=== PATIENT | female | born 1995 | race Caucasian/White ===

== ENCOUNTER 2022-01-12 11:19 | Inpatient (IN) | payer BC ==
[2022-01-18] MEDS ORDERED: Ondansetron 4 MG/2 ML SDV IVPUSH PRN (19:12)
[2022-01-18] MEDS ORDERED: Lidocaine 1% 50 ML MDV INJECT ONE (19:12)
[2022-01-18] MEDS ORDERED: Calcium Carbonate 500 MG Tab.Chew PO PRN (19:12)
[2022-01-18] MEDS ORDERED: Acetaminophen 325 MG Tab PO PRN (19:12)
[2022-01-18] MEDS ORDERED: Sodium Chloride 0.9% 10 ML Syringe FLUSH PRN (19:12)
[2022-01-18] MEDS ORDERED: Nalbuphine HCl 10 MG/ 1ML Amp IVPUSH PRN (19:12)
[2022-01-18] MEDS ORDERED: Oxytocin/Lactated Ringers 10 UNIT/1,000 ML BAG IV SCH ×2 (19:15)
[2022-01-18] MEDS: Lactated Ringers 1,000 ML IV SCH (20:04)
[2022-01-19] MEDS ORDERED: fentaNYL 100 MCG/2 ML SDV EPIDUR PRN (00:27)
[2022-01-19] MEDS ORDERED: Bupivacaine/fentaNYL/NS 100 ML Bag EPIDUR PRN (00:27)
[2022-01-19] MEDS ORDERED: diphenhydrAMINE 50 MG/ML SDV IVPUSH PRN (00:27)
[2022-01-19] MEDS ORDERED: ePHEDrine 50 MG/ML SDV IVPUSH PRN (00:27)
[2022-01-19] MEDS: Lactated Ringers 1,000 ML IV SCH ×4 (00:29→09:39)
[2022-01-19] MEDS ORDERED: Ampicillin 2 GM in Sodium Chloride 0.9% 100 ML IV ONE (08:00)
[2022-01-19] MEDS ORDERED: Ampicillin 2 GM in Sodium Chloride 0.9% 100 ML IV SCH (08:00)
[2022-01-19] MEDS ORDERED: SODIUM CHLORIDE 0.9% IV ONE (08:30)
[2022-01-19] MEDS ORDERED: GENTAMICIN IV ONE (08:30)
[2022-01-19] MEDS ORDERED: Carboprost Tromethamine 250 MCG/1 ML Amp ONE (08:47)
[2022-01-19] MEDS ORDERED: Carboprost Tromethamine 250 MCG/1 ML Amp IM ONE (09:09)
[2022-01-19] MEDS ORDERED: Methylergonovine 0.2 MG/1 ML Amp IM STA (09:09)
[2022-01-19] MEDS ORDERED: Misoprostol 200 MCG Tab PO STA (09:09)
[2022-01-19] MEDS ORDERED: Witch Hazel Medicated Pads 40/Jar TOP PRN (09:36)
[2022-01-19] MEDS ORDERED: Acetaminophen 325 MG Tab PO PRN (09:36)
[2022-01-19] MEDS ORDERED: Benzocaine/Menthol 20%-0.5% Spray 78 GM Cannister TOP PRN (09:36)
[2022-01-19] MEDS ORDERED: Methylergonovine 0.2 MG/1 ML Amp IM SCH (11:00)
[2022-01-19] MEDS ORDERED: Bupivacaine 0.25% 10 ML SDV ONE (12:00)
[2022-01-19] MEDS ORDERED: Acetaminophen 325 MG Tab PO ONE ×2 (17:38→18:13)
[2022-01-19] MEDS: ceFAZolin 1 GM in Sodium Chloride 0.9% 50 ML IV SCH ×2 (18:16→23:58)
[2022-01-20] MEDS: ceFAZolin 1 GM in Sodium Chloride 0.9% 50 ML IV SCH ×2 (05:58→11:54)
[2022-01-20] MEDS: Docusate Sodium 100 MG Cap PO PRN ×2 (09:33→21:09)
[2022-01-20] MEDS: Ibuprofen 600 MG Tab PO PRN (21:09)
[2022-01-21] MEDS: Ibuprofen 600 MG Tab PO PRN (03:33)
== END 2022-01-21 10:50 | disposition home or self-care (01) | DRG 560 ==
LOC: JD.OB 01-18 09:53 → OBSVTOIN 01-19 09:53 → JD.OB 01-19 09:54
PROVIDERS: ADMIT Obstetrics & Gynecology; ATTEND Obstetrics & Gynecology
PROC: 10D07Z6 Extraction of Products of Conception, Vacuum, Via Natural or Artificial Opening (ICD-10-PCS; principal; 2022-01-19)
PROC: 10907ZC Drainage of Amniotic Fluid, Therapeutic from Products of Conception, Via Natural or Artificial Opening (ICD-10-PCS; 2022-01-19)
PROC: 3E033VJ Introduction of Other Hormone into Peripheral Vein, Percutaneous Approach (ICD-10-PCS; 2022-01-19)
PROC: 3E0R3BZ Introduction of Anesthetic Agent into Spinal Canal, Percutaneous Approach (ICD-10-PCS; 2022-01-19)
PROC: 00HU33Z Insertion of Infusion Device into Spinal Canal, Percutaneous Approach (ICD-10-PCS; 2022-01-19)
DX: O48.0 Post-term pregnancy (principal); O41.1230 Chorioamnionitis, third trimester, not applicable or unspecified; Z3A.40 40 weeks gestation of pregnancy; Z37.0 Single live birth; O72.1 Other immediate postpartum hemorrhage; O70.0 First degree perineal laceration during delivery; O99.02 Anemia complicating childbirth; D64.9 Anemia, unspecified
CPT/HCPCS: 01967; 36415; 51701; 51702; 59025; 59409; 85025; 85027; 85610; 85730; 86592; 86850; 86900; 86901; 86922; A9270-GY; J0290; J0690; J1580; J2210; J2590; J3010; J3490; J7120

== ENCOUNTER 2023-08-16 19:23 | Inpatient (IN) | payer BC ==
[2023-08-16] MEDS ORDERED: Ampicillin 2 GM in Sodium Chloride 0.9% 100 ML IV ONE (20:02)
[2023-08-16] MEDS ORDERED: Lidocaine 1% 50 ML MDV INJECT PRN (20:02)
[2023-08-16] MEDS ORDERED: Ondansetron 4 MG/2 ML SDV IVPUSH PRN (20:02)
[2023-08-16] MEDS ORDERED: Sodium Chloride 0.9% 10 ML Syringe FLUSH PRN (20:02)
[2023-08-16] MEDS ORDERED: Nalbuphine HCl 10 MG/ 1ML Amp IVPUSH PRN (20:02)
[2023-08-16] MEDS ORDERED: Oxytocin/Lactated Ringers 30 UNIT/500 ML BAG IV SCH (20:15)
[2023-08-16] MEDS ORDERED: Lactated Ringers 1,000 ML IV SCH (20:15)
[2023-08-16 20:21] LABS: BASOPHILS PERCENT AUTO 0.1 % (0.0-1.0); EOSINOPHILS ABSOLUTE AUTO 0.1 K/mm3 (0.0-0.4); EOSINOPHILS PERCENT AUTO 0.5 % (0.0-6.0); HEMATOCRIT 34.1 % (37.0-47.0); HEMOGLOBIN 11.5 gm/dl (12.0-16.0); IMMATURE GRAN ABSOLUTE AUTO 0.05 K/mm3 (0.00-0.05); IMMATURE GRAN PERCENT AUTO 0.4 % (0.0-0.4); LYMPHOCYTES ABSOLUTE AUTO 1.9 K/mm3 (1.0-4.8); LYMPHOCYTES PERCENT AUTO 14.9 % (24.0-44.0); MEAN CORPUSCULAR HEMOGLOBIN 29.9 pg (28.0-32.0); MEAN CORPUSCULAR HGB CONC 33.7 g/dl (32.0-36.0); MEAN CORPUSCULAR VOLUME 88.8 fl (83.0-99.0); MEAN PLATELET VOLUME 8.9 fl (9.4-12.3); MONOCYTES ABSOLUTE AUTO 1.2 K/mm3 (0.0-0.8); MONOCYTES PERCENT AUTO 9.5 % (0.0-8.0); NEUTROPHILS ABSOLUTE AUTO 9.7 K/mm3 (1.8-7.7); NEUTROPHILS PERCENT AUTO 74.6 % (41.0-71.0); PLATELET COUNT,PLT 247 K/mm3 (150-400); RED BLOOD CELL COUNT 3.84 M/mm3 (4.10-5.30); WHITE BLOOD CELL COUNT,WBC 12.99 K/mm3 (3.9-11.3)
[2023-08-16] MEDS ORDERED: Sodium Chloride 0.9% 10 ML Syringe FLUSH SCH (21:00)
[2023-08-16] MEDS ORDERED: Tranexamic Acid 1,000 MG/10 ML Vial ONE (21:00)
[2023-08-16] MEDS ORDERED: Bupivacaine/fentaNYL/NS 100 ML Bag EPIDUR PRN (21:42)
[2023-08-16] MEDS ORDERED: fentaNYL 100 MCG/2 ML SDV EPIDUR PRN (21:42)
[2023-08-16] MEDS ORDERED: ePHEDrine 50 MG/ML SDV IVPUSH PRN (21:42)
[2023-08-16] MEDS ORDERED: diphenhydrAMINE 50 MG/ML SDV IVPUSH PRN (21:42)
[2023-08-16] MEDS ORDERED: Methylergonovine 0.2 MG/1 ML Amp IM STA (23:44)
[2023-08-16] MEDS ORDERED: Benzocaine/Menthol 20%-0.5% Spray 78 GM Cannister TOP PRN (23:57)
[2023-08-16] MEDS ORDERED: Acetaminophen 325 MG Tab PO PRN (23:57)
[2023-08-16] MEDS ORDERED: Docusate Sodium 100 MG Cap PO PRN (23:57)
[2023-08-16] MEDS ORDERED: Ibuprofen 600 MG Tab PO PRN (23:57)
[2023-08-16] MEDS ORDERED: Witch Hazel Medicated Pads 40/Jar TOP PRN (23:57)
[2023-08-17] MEDS ORDERED: Ampicillin 1 GM in Sodium Chloride 0.9% 100 ML IV SCH ×2
== END 2023-08-18 15:07 | disposition home or self-care (01) | DRG 560 ==
LOC: JD.OBCHECK 19:23 → JD.OB 19:27 → OBSVTOIN 20:03 → JD.OB 20:03 → JD.OBCHECK 21:03 → JD.OB 23:21
PROVIDERS: ADMIT Obstetrics & Gynecology; ATTEND Obstetrics & Gynecology
PROC: 10E0XZZ Delivery of Products of Conception, External Approach (ICD-10-PCS; principal; 2023-08-16)
DX: O99.824 Streptococcus B carrier state complicating childbirth (principal); Z3A.40 40 weeks gestation of pregnancy; Z37.0 Single live birth
CPT/HCPCS: 36415; 59025; 59409; 85025; 86592; 86850; 86900; 86901; J0290; J2210; J3490; J7120; J7999

== ENCOUNTER 2025-02-23 18:43 | Inpatient (IN) | payer BC ==
[2025-02-23] MEDS ORDERED: Nalbuphine 10 MG/1 ML Vial IVPUSH PRN (19:09)
[2025-02-23] MEDS ORDERED: Sodium Chloride 0.9% 10 ML Syringe FLUSH PRN (19:09)
[2025-02-23] MEDS ORDERED: Ondansetron 4 MG/2 ML SDV IVPUSH PRN (19:09)
[2025-02-23] MEDS ORDERED: Lactated Ringers 1,000 ML IV SCH (19:15)
[2025-02-23] MEDS ORDERED: Oxytocin/0.9 % Sodium Chloride 30 UNIT/500 ML BAG IV SCH (19:15)
[2025-02-23 19:44] LABS: BASOPHILS ABSOLUTE AUTO 0.0 K/mm3 (0.0-0.2); BASOPHILS PERCENT AUTO 0.1 % (0.0-1.0); EOSINOPHILS ABSOLUTE AUTO 0.0 K/mm3 (0.0-0.4); EOSINOPHILS PERCENT AUTO 0.4 % (0.0-6.0); IMMATURE GRAN ABSOLUTE AUTO 0.02 K/mm3 (0.00-0.05); IMMATURE GRAN PERCENT AUTO 0.2 % (0.0-0.4); LYMPHOCYTES ABSOLUTE AUTO 1.5 K/mm3 (1.0-4.8); LYMPHOCYTES PERCENT AUTO 18.1 % (24.0-44.0); MEAN PLATELET VOLUME 9.4 fl (9.4-12.3); MONOCYTES ABSOLUTE AUTO 0.7 K/mm3 (0.0-0.8); MONOCYTES PERCENT AUTO 8.5 % (0.0-8.0); NEUTROPHILS ABSOLUTE AUTO 6.1 K/mm3 (1.8-7.7); NEUTROPHILS PERCENT AUTO 72.7 % (41.0-71.0); NRBC ABSOLUTE 0.00 (0.00-0.02); NRBC PERCENT 0.0 % (0.0-0.2); PLATELET COUNT,PLT 248 K/mm3 (150-400); RED BLOOD CELL COUNT 4.17 M/mm3 (4.10-5.30); WHITE BLOOD CELL COUNT,WBC 8.45 K/mm3 (3.9-11.3)
[2025-02-23] MEDS: Sodium Chloride 0.9% 10 ML Syringe FLUSH SCH (22:21)
[2025-02-23] MEDS: Oxytocin/0.9 % Sodium Chloride 30 UNIT/500 ML BAG IV SCH (23:25)
[2025-02-24] MEDS: Oxytocin/0.9 % Sodium Chloride 30 UNIT/500 ML BAG IV SCH (00:09)
[2025-02-24] MEDS: Benzocaine/Menthol 20%-0.5% Spray 78 GM Cannister TOP PRN (00:16)
[2025-02-24] MEDS: Witch Hazel Medicated Pads 40/Jar TOP PRN (00:16)
== END 2025-02-25 10:35 | disposition home or self-care (01) | DRG 560 ==
LOC: JD.OBCHECK 18:43 → JD.OB 19:02 → JD.OBCHECK 19:08 → JD.OB 19:09 → OBSVTOIN 23:22 → JD.OB 23:23
PROVIDERS: ADMIT Obstetrics & Gynecology; ATTEND Obstetrics & Gynecology
PROC: 10E0XZZ Delivery of Products of Conception, External Approach (ICD-10-PCS; principal; 2025-02-23)
DX: O48.0 Post-term pregnancy (principal); Z3A.40 40 weeks gestation of pregnancy; Z37.0 Single live birth; Z79.899 Other long term (current) drug therapy; Z90.49 Acquired absence of other specified parts of digestive tract; Z98.890 Other specified postprocedural states
CPT/HCPCS: 36415; 59025; 59409; 85025; 86592; 86850; 86900; 86901; A9270-GY; J2210; J7999